=== PATIENT | female | born 1990 | race Caucasian/White ===

== ENCOUNTER 2016-05-22 10:25 | Observation (INO) | payer OTHER ==
--- NOTE | 2016-05-22 10:36 | CPEKG ---
Heart Rate: 112 RR Interval: 536 P-R Interval: 160 QRSD Interval: 96 QT Interval: 336 QTC Interval: 459 P Camden: 75 QRS Camden: 24 T Wave Camden: 35 EKG Severity - OTHERWISE NORMAL ECG - EKG Impression: SINUS TACHYCARDIA Electronically Signed By: Cj Robles 22-May-2016 11:13:51
[2016-05-22] MEDS ORDERED: NS 1,000 ML IV ONE (10:48)
[2016-05-22] MEDS ORDERED: NS 500 ML IV ONE (10:48)
--- NOTE | 2016-05-22 10:56 | EDPHY ---
H & P Time Seen by Provider: 05/22/16 10:36 HPI/ROS: HPI Syncope. 26-year-old female by ambulance. This patient is straining to be, a [employer]. 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 She reports that she had to energy drinks before starting the test earlier this morning. The test involved running an obstacle course and climbing over a wall. She reports that she ran at 1st and completed the course without a weighted vest. She then put on a 14 lb weight vest and attempted the course again. She reports just before she got to the wall on her 2nd attempt acclimate she suddenly lost consciousness. She was apparently unconscious for several seconds. When she came to she reported that she was given albuterol after she told the police responders that she was an asthmatic. She took 2 hits of albuterol. She reports shortness of breath just prior to the event of syncope as well as chest tightness. No palpitations. No sudden headache. She denies any numbness or weakness in her extremities. She feels anxious now but otherwise has no complaints. ROS: Constitutional: No fever, no chills. As above. Eyes: No discharge. No changes in vision. ENT: No sore throat. No nasal congestion or rhinorrhea. Respiratory: No cough. As above. Cardiac: No chest pain, no palpitations. Gastrointestinal: No abdominal pain, no vomiting, no diarrhea. Genitourinary: No hematuria. No dysuria or increased frequency with urination. Musculoskeletal: No back pain. No neck pain. No myalgias or arthralgias. Skin: No rashes. Neurological: No headache. No focal weakness or altered sensation. Past medical history: Asthma. No primary care physician here currently. Social history: Nonsmoker. She is from [place]. She has been in [place] for about 6 months now. As above. Physical Exam: General Appearance: Alert, no distress. This patient is responding to questions appropriately and in full sentences. This patient appears well- hydrated and well-nourished. Eyes: Pupils equal and round no pallor or injection. No lid edema, erythema or injection. ENT, Mouth: Mucous membranes are moist. The pharyngeal tissues are unremarkable. No edema or swelling. No asymmetry suggestive of abscess. No erythema or exudates. Respiratory: There are no retractions, lungs are clear to auscultation with good air movement bilaterally. Cardiovascular: Regular rate and rhythm. Tachycardia No murmur. Gastrointestinal: Abdomen is soft and nontender, no masses, bowel sounds normal. No focal tenderness at McBurney's point. No Billings sign. Neurological: Motor sensory function is grossly intact. Cranial nerves are normal. Gait is normal. Skin: Warm and dry, no rashes. Musculoskeletal: Neck is supple and nontender. Extremities are symmetrical. All joints range without pain or impingement. Psychiatric: No agitation. No depression. Database: EKG: EKG time is 10:34 a.m.; EKG shows a narrow complex sinus tachycardia with a ventricular rate of 112. The FL, QRS, QT intervals are within normal limits. There are no ST-T wave changes indicative of ischemic or injury pattern. No evidence of right heart strain. No evidence of WPW, hypertrophic cardiomyopathy , Brugada syndrome. Interpreted by me. Imaging: Chest x-ray PA and lateral; the cardiac mediastinal silhouette is unremarkable. No evidence of infiltrate or pneumothorax. No acute cardiopulmonary disease process noted. Interpreted by me. Procedures: Emergency department course: IV was placed. She was placed on a diabetes physician. She will be given a L and half of IV normal saline over the next 1-2 hours. EKG performed and reviewed by myself. Vital signs have been reviewed. Echocardiogram ordered. 11:50 p.m., patient re-evaluated. She is resting comfortably at this time. Blood pressure normal. She denies any symptoms at this time. She remains tachycardic. She has a narrow complex sinus tachycardia rate of 111 on the monitor currently. I discussed the results of her chest x-ray, EKG and blood work. I explained we would admit her for further evaluation. Echocardiogram is pending. All of her questions were answered. She endorses. 12:00 p.m., spoke with hospitalist. Patient accepted for observation telemetry admission. They are aware of echocardiogram is pending. Patient admitted to Dr. Romelia Ellis in stable condition. Differential Diagnosis: The differential diagnosis on this patient includes but is not limited to exercise related syncope. Pulmonary embolism, acute coronary syndrome, CVA, subarachnoid hemorrhage unlikely. This represents a partial list of diagnoses considered. These considerations are based on history, physical exam, past history, reassessment and diagnostic testing. Smoking Status: Never smoked Constitutional: Initial Vital Signs Temperature (C) 36.6 C 05/22/16 10:48 Heart Rate 112 H 05/22/16 10:48 Respiratory Rate 18 05/22/16 10:48 Blood Pressure 138/75 H 05/22/16 10:48 O2 Sat (%) 95 05/22/16 10:48 O2 Delivery Mode Room Air Allergies/Adverse Reactions: No Known Allergies Allergy (Unverified 05/22/16 10:38) Home Medications: Medication Instructions Recorded Albuterol [Proventil Inhaler HFA 1 puffs IH Q4 PRN 05/22/16 (*)] Norethindrone-E.estradiol-Iron 1 each PO DAILY 05/22/16 [Minastrin 24 Fe Chewable Tab] Medical Decision Making - Data Points Laboratory Results: Laboratory Results 05/22/16 10:26 05/22/16 10:26 Medications Given: Discontinued Medications Sodium Chloride (Ns) 500 mls @ 0 mls/hr IV ONCE ONE PRN Reason: As Directed Stop: 05/22/16 10:49 Last Admin: 05/22/16 11:03 Dose: 500 mls Sodium Chloride (Ns) 1,000 mls @ 0 mls/hr IV ONCE ONE PRN Reason: Wide Open Stop: 05/22/16 10:49 Last Admin: 05/22/16 10:57 Dose: 1,000 mls Sodium Chloride (Ns) 1,000 mls @ 100 mls/hr IV CONT KATERYNA Stop: 11/18/16 13:59 Last Admin: 05/23/16 02:19 Dose: 1,000 mls Miscellaneous Medication (Norethindrone-E.Estradiol-Iron [Minastrin 24 Fe Chewable Tab]) 1 each PO DAILY KATERYNA Stop: 11/19/16 08:59 Last Admin: 05/23/16 09:53 Dose: Not Given Departure - Departure Disposition: [facility] Acute Clinical Impression: Syncope and collapse, Exercise induced syncope Condition: Good
[2016-05-22 11:01] LABS: % IMMATURE GRANULYOCYTES 0.2 % (0.0-1.1); ABSOLUTE IMMATURE GRANULOCYTES 0.03 10^3/uL (0.00-0.10); ADD DIFF? NO; ADD MORPH? NO; ADD SCAN? NO; ATYPICAL LYMPHOCYTE FLAG 20 (0-99); FRAGMENT RBC FLAG 0 (0-99); HEMATOCRIT 48.2 % (38.0-47.0); HEMOGLOBIN 15.9 g/dL (12.6-16.3); LEFT SHIFT FLG 0 (0-99); LIPEMIA HEMOLYSIS FLAG 80 (0-99); MEAN CELL HEMOGLOBIN 29.7 pg (27.9-34.1); MEAN CELL VOLUME 89.9 fL (81.5-99.8); MEAN PLATELET VOLUME 11.2 fL (8.7-11.7); PLATELET CLUMPS FLAG 0 (0-99); PLATELET COUNT 350 10^3/uL (150-400); RED BLOOD CELL COUNT 5.36 10^6/uL (4.18-5.33); RED CELL DISTRIBUTION WIDTH 13.4 % (11.5-15.2)
[2016-05-22 11:06] LABS: ANION GAP 22 mEq/L (8-16); CALCIUM 10.1 mg/dL (8.5-10.4); CARBON DIOXIDE 14 mEq/l (22-31); CHLORIDE 105 mEq/L (97-110); CREATININE 0.9 mg/dL (0.6-1.0); GLOMERULAR FILTRATION RATE > 60; GLUCOSE 162 mg/dL (70-100); POTASSIUM 4.8 mEq/L (3.5-5.2); SODIUM 141 mEq/L (134-144)
[2016-05-22 11:14] LABS: PROTIME(PATIENT) 13.1 SEC (12.0-15.0)
[2016-05-22 11:17] LABS: TROPONIN I < 0.012 ng/mL (0-0.034)
--- NOTE | 2016-05-22 13:41 | ECHO ---
[id number] + + [id number] : : [place] [address] : : [phone] + + Adult Echocardiographic Report + --------+ :Name: RACHEL COELLO CStudy Date: 05/22/2016 01:26 PM : : Hospital Admission Number: [id number] Locat ion: 140: :: 1990 Gender: Female Height: 60 in : :Age: 26 yrs Race: WH,UN Weight: 117 l b : :Reason For Study: Chest pain : : BSA: 1.5 mete rs2 : + --------+ MMode/2D Measurements \T\ Calculations IVSd: 0.67 cm LVIDd: 4.1 cm FS: 45.9 % Ao root diam: LVPWd: 0.61 cm LVIDs: 2.2 cm EDV(Teich): 2.8 cm 72.1 ml LA dimension: ESV(Teich): 2.7 cm 16.0 ml EF(Teich): 77.8 % LVLd ap4: 7.6 cm SV(MOD-sp4): EDV(MOD-sp4): 36.0 ml 44.0 ml LVLs ap4: 5.4 cm ESV(MOD-sp4): 8.0 ml EF(MOD-sp4): 81.8 % Normal Measurement Values: + + :LVIDd (3.5-5.7cm) IVSd (0.6-1.1cm) LVPWd (0.6-1.1cm) Aortic Root (2.0-3.7cm)Left Atrium (1.5-4.0cm): :LV Vol(d) (76-115ml) LV Vol(s) (29-48ml) Ejec Fraction (50-65%)PV Christopher (0.6- 1.2m/s) TV Christopher (0.4-1.0m/s) : :MV E Christopher (0.8-1.0m/s)MV A Christopher (0.3-1.0m/s)LVOT Christopher (0.7-1.2m/s) Asc Ao Christopher ( 0.9-1.8m/s) : + + Doppler Measurements \T\ Calculations MV E max christopher: 76.0 cm/sec Ao V2 max: 137.0 cm/sec TR max christopher: 228.0 cm/sec MV A max christopher: 62.7 cm/sec Ao max P.5 mmHg TR max P.8 mmHg MV E/A: 1.2 RAP systole: 5.0 mmHg RVSP(TR): 25.8 mmHg Left Ventricle The left ventricle is normal in size and function. There is normal left ventricular wall thickness. Left ventricular systolic function is normal. Ejection Fraction = 65-70%. No regional wall motion abnormalities noted. Right Ventricle The right ventricle is normal in size and function. Atria The left atrial size is normal. Right atrial size is normal. The atrial septum is aneurysmal. Mitral Valve The mitral valve is normal in structure and function. There is no evidence of mitral valve prolapse. There is no mitral valve stenosis. There is trace mitral regurgitation. Tricuspid Valve Normal tricuspid valve. There is trace tricuspid regurgitation. Aortic Valve The aortic valve is trileaflet. The aortic valve opens well. There is no aortic stenosis. There is no aortic insufficiency. Pulmonic Valve The pulmonic valve is normal in structure and function. There is no pulmonic valvular regurgitation. Great Vessels The aortic root is normal size. Pericardium/Pleural There is no pericardial effusion. Conclusion A complete two-dimensional transthoracic echocardiogram was performed (2D, M-mode, Doppler and color flow Doppler). The left ventricle is normal in size and function. Left ventricular systolic function is normal. Ejection Fraction = 65-70%. The atrial septum is aneurysmal. There is trace mitral regurgitation. There is trace tricuspid regurgitation. No regional wall motion abnormalities noted. Final Reading Physician: Chris W Cope, Melectronically signed on 05/22/2016 01:40 PM Ordering Physician: Cj Robles Performed By: Gladis Davis RDCS
[2016-05-22] MEDS ORDERED: ACETAMINOPHEN 325 MG TAB PO PRN (13:51)
[2016-05-22] MEDS ORDERED: ONDANSETRON DISINTEGRATING 4 MG TAB PO PRN (13:51)
[2016-05-22] MEDS ORDERED: NS 1,000 ML IV SCH (14:00)
--- NOTE | 2016-05-22 14:07 | PDEACUHP ---
History and Physical - Chief Complaint syncope - History of Present Illness 26 yo female with h/o asthma presents to ED after syncopal episode while doing a training test for the [employer]. She hasn't done regular aerobic exercise for the past 6 months. She completed the course, including going over a wall, but then had to repeat the course wearing a 14 lb vest. She felt quite winded even after the first course. During the 2nd attempt with the extra weight, she felt light headed and fatigued at maximum exertion, but did not feel wheezing or symptoms of asthma. She was trying to push a dummy over a wall and suddenly passed out. She awoke with some chest tightness. Denied CP or palpitations prior to episode. No family h/o sudden cardiac or structural heart abnormalities. History Information - Allergies/Home Medication List Allergies/Adverse Reactions: No Known Allergies Allergy (Unverified 05/22/16 10:38) Home Medications: Albuterol [Proventil Inhaler HFA (*)] 1 puffs IH Q4 PRN 05/22/16 [Last Taken 07/05 08:00] Norethindrone-E.estradiol-Iron [Minastrin 24 Fe Chewable Tab] 1 each PO DAILY [Last Taken 05/22/16 08:00] I have personally reviewed and updated: family history, medical history, social history, surgical history - Past Medical History asthma Additional medical history: kidney stones - Surgical History Additional surgical history: partial parathyroidectomy - Family History Positive for: stroke (parents both have hypertension) - Social History Smoking Status: Never smoked Alcohol Use: Occasionally Drug Use: None Additional social history: , 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 Review of Systems ROS: 10pt was reviewed & negative except for what was stated in HPI & below Physical Exam Temp Pulse Resp BP Pulse Ox 36.5 C 97 16 138/93 H 96 05/22/16 12:34 05/22/16 12:34 05/22/16 12:34 05/22/16 12:34 05/22/16 12:34 Constitutional: no apparent distress Eyes: PERRL Ears, Nose, Mouth, Throat: moist mucous membranes Cardiovascular: regular rate and rhythym, no murmur, rub, or gallop Respiratory: no respiratory distress, clear to auscultation Gastrointestinal: normoactive bowel sounds, soft, non-tender abdomen Skin: warm Musculoskeletal: full muscle strength Neurologic: AAOx3 Psychiatric: interacting appropriately Lab Data & Imaging Review 05/22/16 10:26 05/22/16 10:26 WBC 12.60 10^3/uL (3.80-9.50) H 05/22/16 10:26 RBC 5.36 10^6/uL (4.18-5.33) H 05/22/16 10:26 Hgb 15.9 g/dL (12.6-16.3) 05/22/16 10:26 Hct 48.2 % (38.0-47.0) H 05/22/16 10:26 MCV 89.9 fL (81.5-99.8) 05/22/16 10:26 MCH 29.7 pg (27.9-34.1) 05/22/16 10:26 MCHC 33.0 g/dL (32.4-36.7) 05/22/16 10:26 RDW 13.4 % (11.5-15.2) 05/22/16 10:26 Plt Count 350 10^3/uL (150-400) 05/22/16 10:26 MPV 11.2 fL (8.7-11.7) 05/22/16 10:26 Neut % (Auto) 81.7 % (39.3-74.2) H 05/22/16 10:26 Lymph % (Auto) 14.4 % (15.0-45.0) L 05/22/16 10:26 [place]ett % (Auto) 2.9 % (4.5-13.0) L 05/22/16 10:26 Eos % (Auto) 0.4 % (0.6-7.6) L 05/22/16 10:26 Baso % (Auto) 0.4 % (0.3-1.7) 05/22/16 10:26 Nucleat RBC Rel Count 0.0 % (0.0-0.2) 05/22/16 10:26 Absolute Neuts (auto) 10.29 10^3/uL (1.70-6.50) H 05/22/16 10:26 Absolute Lymphs (auto) 1.81 10^3/uL (1.00-3.00) 05/22/16 10:26 Absolute Monos (auto) 0.37 10^3/uL (0.30-0.80) 05/22/16 10:26 Absolute Eos (auto) 0.05 10^3/uL (0.03-0.40) 05/22/16 10:26 Absolute Basos (auto) 0.05 10^3/uL (0.02-0.10) 05/22/16 10:26 Absolute Nucleated RBC 0.00 10^3/uL (0-0.01) 05/22/16 10:26 Immature Gran % 0.2 % (0.0-1.1) 05/22/16 10:26 Immature Gran # 0.03 10^3/uL (0.00-0.10) 05/22/16 10:26 PT 13.1 SEC (12.0-15.0) 05/22/16 10:26 INR 1.00 (0.83-1.16) 05/22/16 10:26 APTT 24.0 SEC (23.0-38.0) 05/22/16 10:26 D-Dimer < 0.27 ug/mLFEU (0.00-0.50) 05/22/16 10:26 Sodium 141 mEq/L (134-144) 05/22/16 10:26 Potassium 4.8 mEq/L (3.5-5.2) 05/22/16 10:26 Chloride 105 mEq/L (97-110) 05/22/16 10:26 Carbon Dioxide 14 mEq/l (22-31) L 05/22/16 10:26 Anion Gap 22 mEq/L (8-16) H 05/22/16 10:26 BUN 11 mg/dL (7-23) 05/22/16 10:26 Creatinine 0.9 mg/dL (0.6-1.0) 05/22/16 10:26 Estimated GFR > 60 05/22/16 10:26 Glucose 162 mg/dL (70-100) H 05/22/16 10:26 Calcium 10.1 mg/dL (8.5-10.4) 05/22/16 10:26 Troponin I < 0.012 ng/mL (0-0.034) 05/22/16 10:26 Beta HCG, Qual NEGATIVE 05/22/16 10:26 Assessment & Plan Assessment: Syncope and collapse (Acute) - This may be due to over-exertion and volume depletion given hx. No e/o asthma exacerbation. Need to r/o structural heart disease such as outflow obstruction / HCM. -monitor on telemetry to evaluate for arrhythmia -echo ordered, result pending -cont NS AGMA - salicylate neg, lactate neg. no h/o ingestion. bg 162, but doesn't seem c/w DKA and no h/o DM. May be related to volume depletion / bicarb shift given heavy exertion vs starvation ketosis. -check ua for ketones -cont IVF hydration -follow am bmp Asthma - no e/o exacerbation, no wheezing on exam. Cont prn albuterol. H/O kidney stones - no symptoms at this time Dispo - obs / eacu
[2016-05-22] MEDS ORDERED: ALBUTEROL 60 PUFFS/8 GM MDI IH PRN (16:36)
[2016-05-22 16:38] LABS: SALICYLATE < 1.0 mg/dL (2.0-20.0)
[2016-05-22 17:54] LABS: COLOR YELLOW; LEUKOCYTE ESTERASE,URINE NEGATIVE (NEGATIVE); NITRITE,URINE NEGATIVE (NEGATIVE)
[2016-05-23 06:21] LABS: % IMMATURE GRANULYOCYTES 0.2 % (0.0-1.1); ABSOLUTE IMMATURE GRANULOCYTES 0.01 10^3/uL (0.00-0.10); ADD DIFF? NO; ADD MORPH? NO; ADD SCAN? NO; ATYPICAL LYMPHOCYTE FLAG 0 (0-99); FRAGMENT RBC FLAG 0 (0-99); HEMATOCRIT 38.9 % (38.0-47.0); HEMOGLOBIN 13.2 g/dL (12.6-16.3); LEFT SHIFT FLG 0 (0-99); LIPEMIA HEMOLYSIS FLAG 90 (0-99); MEAN CELL HEMOGLOBIN 30.6 pg (27.9-34.1); MEAN CELL HEMOGLOBIN CONCENTR. 33.9 g/dL (32.4-36.7); MEAN PLATELET VOLUME 11.4 fL (8.7-11.7); PLATELET CLUMPS FLAG 0 (0-99); PLATELET COUNT 243 10^3/uL (150-400); RED BLOOD CELL COUNT 4.32 10^6/uL (4.18-5.33); RED CELL DISTRIBUTION WIDTH 13.4 % (11.5-15.2)
[2016-05-23 06:26] LABS: ANION GAP 8 mEq/L (8-16); CALCIUM 8.2 mg/dL (8.5-10.4); CARBON DIOXIDE 18 mEq/l (22-31); CHLORIDE 110 mEq/L (97-110); CREATININE 0.5 mg/dL (0.6-1.0); GLOMERULAR FILTRATION RATE > 60; GLUCOSE 89 mg/dL (70-100); POTASSIUM 4.3 mEq/L (3.5-5.2); SODIUM 136 mEq/L (134-144)
[2016-05-23 07:23] VITALS: BP 120/77; PULSE 86; RESP 19; TEMP 98.7; O2SAT 95
[2016-05-23] MEDS ORDERED: NORETHINDRONE E ESTRADIOL IRON PO SCH ×2 (09:00)
--- NOTE | 2016-05-23 21:29 | GDS ---
DISCHARGE DIAGNOSES: 1. Exercise-induced syncope. 2. Anion gap metabolic acidosis. Gap closed. Acidosis significantly improved. 3. Asthma. Condition stable with no acute exacerbation. IMAGING STUDIES/PROCEDURES: 1. Echocardiogram May 22, 2016, showed normal left ventricular size and function with an ejection fraction of 65% to 70%. Atrial septum was noted to be aneurysmal with trace mitral regurgitation an d trace tricuspid regurgitation, but no regional wall motion abnormalities and no evidence of left v entricular outflow obstruction. 2. Chest x-ray was normal. HISTORY: Please see dictated physical dated May 22, 2016. 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 After completion of the test, she felt very fatigued and a bit lightheaded. She th en had to repeat the test a 2nd time with a 15 pound vest. She continued to exert herself at sophia l effort and ultimately had a sudden syncopal episode that was preceded by dizziness. She was admit gabino to the hospital for further evaluation. HOSPITAL COURSE: The patient was admitted to the observation unit. She was monitored on telemetry with no evidence of cardiac abnormalities. She had a nonischemic EKG. Her echocardiogram was relat ively normal. I did discuss the aneurysmal atrial septum with Dr. Gramajo of cardiology, and this was felt to be insignificant and an incidental finding. She did present with a leukocytosis that was l ikely stress reaction. Her white blood cell count normalized the following day after IV hydration. Her D-dimer was negative. She had a normal lactic acid. She had metabolic acidosis on arrival wit h a slightly elevated anion gap of 22. This closed to an anion gap of 8 after IV hydration. Her se rum CO2 increased from 14-18. I recommend she follow up with primary care physician and have her ba sic metabolic panel repeated in 1 week. I suspect her metabolic acidosis was in the setting of over exertion and volume depletion as it responded well to IV fluids. Salicylates were negative. Urina lysis is negative. There was no wheezing, hypoxemia, or evidence of asthma exacerbation. She did not require bronchodi lators and maintained her sats 96% to 98% on room air throughout the hospitalization. DISPOSITION: Patient was discharged home in stable condition. FOLLOWUP: Patient was instructed to establish care with primary care physician and follow up for ba sic metabolic panel in 1 week. I also advised she can maintain good oral hydration and avoid energy drinks, as this event occurred after she had 2 energy drinks. /[id number]/MODL
== END 2016-05-23 11:02 | disposition home or self-care (01) ==
LOC: F1N 12:18
PROVIDERS: ADMIT Hospitalist; ATTEND Hospitalist
DX: R55 Syncope and collapse (principal); E87.2 Acidosis; J45.909 Unspecified asthma, uncomplicated; Z87.442 Personal history of urinary calculi
CPT/HCPCS: 71010; 93005; 93306; G0378; G0480